=== PATIENT | male | born 1985 | race Caucasian/White ===

== ENCOUNTER 2022-06-15 18:26 | Emergency (ER) | payer SELFPAY ==
[~2022-06-15] VITALS: Ht 175.3 cm; Wt 87.0 kg
[2022-06-15] MEDS ORDERED: IBUPROFEN 600MG TABLET PO ONE (19:15)
[2022-06-15] MEDS ORDERED: IBUP-2029 MT (22:36)
[2022-06-15 23:31] VITALS: BP 114/64
== END 2022-06-15 23:45 | disposition home or self-care (01) ==
LOC: ER 18:26
DX: R51.9 Headache, unspecified (principal)
CPT/HCPCS: 70486; 99284